=== PATIENT | male | born 1960 ===

== ENCOUNTER 2021-01-10 08:47 | Emergency (ER) | payer OTHER ==
[2021-01-10 08:53] VITALS: RESP 18
[2021-01-10] MEDS ORDERED: LIDOCAINE/EPINEPHR/TETRACAINE 5 ML BOTTLE TOPICAL ONE (09:00)
[2021-01-10] MEDS ORDERED: LIDOCAINE 1%/EPI 1:200,000 MPF 10 ML VIAL SQ STA (09:21)
[2021-01-10] MEDS ORDERED: LIDOCAINE 1%-EPI 1:100,000 20 ML VIAL SQ STA (09:27)
--- NOTE | 2021-01-10 10:04 | ED ---
ENT HPI - General Chief complaint: Dental/Oral Stated complaint: Oral bleeding Time Seen by Provider: 01/10/21 08:57 Source: patient, family, RN notes reviewed Mode of arrival: wheelchair Limitations: no limitations - History of Present Illness Initial comments: 60-year-old male presents emergency Department chief complaint of bleeding from his gums. Patient states he had all his teeth removed. Patient states that he sees and started bleeding it did stop and ruptured again. Patient has bleeding from lower gumline. Denies any blood thinners. Patient offers no other complaints. He states that his teeth were removed by [facility]. - Related Data Allergies Allergy/AdvReac Type Severity Reaction Status Date / Time No Known Allergies Allergy Verified 01/10/21 08:53 Review of Systems ROS Statement: Those systems with pertinent positive or pertinent negative responses have been documented in the HPI. ROS Other: All systems not noted in ROS Statement are negative. Past Medical History Past Medical History: No Reported History History of Any Multi-Drug Resistant Organisms: None Reported Past Surgical History: No Surgical Hx Reported Past Psychological History: No Psychological Hx Reported Smoking Status: Never smoker Past Alcohol Use History: None Reported Past Drug Use History: None Reported General Exam Limitations: no limitations General appearance: alert, in no apparent distress Head exam: Present: atraumatic, normocephalic, normal inspection Eye exam: Present: normal appearance, PERRL, EOMI. Absent: scleral icterus, conjunctival injection, periorbital swelling ENT exam: Present: mucous membranes moist. Absent: normal exam, normal oropharynx (No dentition there is active bleeding from lower anterior gum line) Neck exam: Present: normal inspection, full ROM. Absent: tenderness, meningismus, lymphadenopathy Respiratory exam: Present: normal lung sounds bilaterally. Absent: respiratory distress, wheezes, rales, rhonchi, stridor Cardiovascular Exam: Present: regular rate, normal rhythm, normal heart sounds. Absent: systolic murmur, diastolic murmur, rubs, gallop, clicks Course Vital Signs 01/10/21 08:48 Pulse Rate 73 Respiratory 18 Rate Blood Pressure 119/68 O2 Sat by Pulse 100 Oximetry Procedures - Procedures Initial comment: Let was initially applied to the lower area with pressure no relief of bleeding, 1% lidocaine with epinephrine to him also used to inject around the site of bleeding and lower gum bleeding has subsided. tolerated well no complications Medical Decision Making - Medical Decision Making Patient had some noted bleeding from his lower gumline from recent until extraction. Patient was observed after bleeding stopped for 20-25 minutes with no rebleeding patient feels comfortable with discharge. Disposition Clinical Impression: Gum hemorrhage Disposition: HOME SELF-CARE Condition: Stable Additional Instructions: Please return to the Emergency Department if symptoms worsen or any other concerns. Is patient prescribed a controlled substance at d/c from ED?: No Referrals: None,Stated [Primary Care Provider] - 1-2 days Time of Disposition: 10:04
[2021-01-10 10:12] VITALS: BP 118/84; PULSE 78
== END 2021-01-10 10:12 | disposition home or self-care (01) ==
LOC: EC 08:47
DX: K06.8 Other specified disorders of gingiva and edentulous alveolar ridge (principal)
CPT/HCPCS: 99283

== ENCOUNTER 2022-01-28 05:46 | Day surgery (SDC) | payer OTHER ==
[~2022-01-28 05:46] MED LIST: ACETAMINOPHEN TAB 500 MG TAB PO PRN; HEPARIN SODIUM,PORCINE/PF 5,000 UNIT/0.5 ML SYRINGE SQ PRN
[2022-01-28] MEDS ORDERED: SCOPOLAMINE 1 MG/72 HR PATCH TRANSDERM ONE (06:03)
[2022-01-28] MEDS ORDERED: LACTATED RINGERS 1,000 ML IV SCH (06:03)
[2022-01-28] MEDS ORDERED: MIDAZOLAM 2 MG/2 ML VIAL IV PRN (06:03)
[2022-01-28] MEDS ORDERED: ONDANSETRON 4 MG/2 ML VIAL IVP ONE (06:03)
[2022-01-28] MEDS ORDERED: DEXAMETHASONE SOD PHOSPHATE 4 MG/ML 1 ML VIAL IV ONE (06:03)
[2022-01-28 06:30] VITALS: TEMP 97.3
[2022-01-28 07:05] LABS: HCT 41.4 % (39.0-53.0); HGB 14.3 gm/dL (13.0-17.5); MCH 32.6 pg (25.0-35.0); MCHC 34.5 g/dL (31.0-37.0); MCV 94.4 fL (80.0-100.0); Mean Platelet Volume 10.5; RBC 4.39 m/uL (4.30-5.90); RDW 12.8 % (11.5-15.5); WBC 4.4 k/uL (3.8-10.6)
[2022-01-28 07:24] LABS: Platelet Count 91 k/uL (150-450)
[2022-01-28] MEDS ORDERED: NEOSTIGMINE 1 MG/ML 10 ML VIAL ONE (07:49)
[2022-01-28] MEDS ORDERED: MIDAZOLAM 2 MG/2 ML VIAL ONE (07:49)
[2022-01-28] MEDS ORDERED: GLYCOPYRROLATE 0.2 MG/ML 2 ML VIAL ONE (07:49)
[2022-01-28] MEDS ORDERED: ROCURONIUM 10 MG/ML (5 ML VIAL) IV ONE (07:49)
[2022-01-28] MEDS ORDERED: fentaNYL (PF) 50 MCG/ML 2 ML AMP ONE (07:49)
[2022-01-28] MEDS ORDERED: SUCCINYLCHOLINE CHLORIDE 100 MG/5 ML SYR IV ONE (07:49)
[2022-01-28] MEDS ORDERED: LIDOCAINE 2% INJ 20 MG/ML (2 ML VIAL) ONE (07:49)
[2022-01-28] MEDS ORDERED: KETAMINE 10 MG/ML 20 ML VIAL ONE (07:49)
[2022-01-28] MEDS ORDERED: PROPOFOL 10 MG/ML 20 ML VIAL IV ONE (07:49)
[2022-01-28] MEDS ORDERED: BUPIVACAINE (PF) 0.25% 30 ML VIAL SQ ONE (07:50)
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
[2022-01-28] MEDS ORDERED: TAMSULOSIN 0.4 MG CAP.ER.24H PO STA (09:34)
--- NOTE | 2022-01-28 09:40 | P.OP ---
Date of Procedure: 01/28/22 Procedure(s) Performed: PREOPERATIVE DIAGNOSIS: Right inguinal hernia POSTOPERATIVE DIAGNOSIS: Right indirect and direct inguinal hernia PROCEDURE: Laparoscopic da Sweetie assisted repair right inguinal hernia with mesh SURGEON: Dr. Colon ANESTHESIA: General OPERATIVE PROCEDURE DETAILS: Patient was placed in the operating table in the supine position. The patient was placed under general anesthesia. The abdomen was prepped and draped in usual sterile fashion. A small curvilinear supraumbilical incision was made. The fascia was retracted anteriorly with Birdie forceps. The Veress needle was inserted. The saline drop test was normal. Insufflation took place to 15 mmHg. An 8 mm trocar was placed into the peritoneal cavity. 2 additional 8 mm trochars were placed in the right upper quadrant and left upper quadrant under visualization. The robotic arms were then brought in and docked into place. The fenestrated bipolar was used in the left arm and the laparoscopic camilo was utilized in the right arm. A 30 8 mm scope was used in the up position. The peritoneal cavity was inspected. The patient had an obvious direct hernia on the right-hand side. Initially it did not appear that there was an indirect hernia on the right side. There was no visible hernia on the left. The peritoneum was incised in a horizontal fashion cephalad to the internal inguinal ring. Following that careful dissection of the preperitoneal space took place. This took place using both electrocautery, sharp dissection but primarily blunt dissection. Visualization of the pubic tubercle and Georges's ligament took place medially. Full dissection took place laterally as well. The direct hernia sac was fully dissected. The patient was noted to have a small very narrow patent processes vaginalis that actually as we followed it down into the scrotum widened out somewhat and was noted to be a sizable hernia. The opening at the internal inguinal ring however was quite small measuring only about 4 mm in diameter. I was eventually able to invert the hernia sac. Once we had adequate space the extra-large Bard 3-D mid mesh was advanced into the preperitoneal space and flattened out appropriately to cover all potential hernia sites. A 20 absorbable be locked suture was used to secure the mesh medially. This was a running stitch in a vertical fashion superior to the pubic tubercle. The peritoneal defect was then closed using a absorbable 2-0 VLok suture. The hernia sac was incorporated into the peritoneal closure to help prevent future recurrence. The redundant excess hernia sac was actually ligated because of its narrow section at the internal inguinal ring. The pneumoperitoneum was then evacuated. The skin of all 3 sites was closed using a 4-0 Monocryl stitch. Skin glue was then applied. TYPE OF MESH USED: Bard 3-D mid 5 x 7" LOCATION OF MESH: Preperitoneal FIXATION: Absorbable 20V lock suture PREOPERATIVE DISCUSSION ON SMOKING CESSASTION: Yes PREOPERATIVE DISCUSSION ON MORBID OBESITY: Yes PREOPERATIVE DISCUSSION ON APPROPRIATE USE OF NARCOTIC USE: Yes PREOPERATIVE EDUCATION: Multi Modal, Smoking Cessation and Weight Loss with BMI over 35. DISPOSITION: Stable to recovery room
[2022-01-28] MEDS ORDERED: KETOROLAC 15 MG/ML 1 ML VIAL IVP ONE (10:19)
[2022-01-28] MEDS: HYDROmorphone 0.5 MG/0.5 ML SYRINGE IVP PRN ×3 (10:23→10:40)
[2022-01-28 12:22] VITALS: RESP 16
[2022-01-28 12:28] VITALS: BP 118/72; PULSE 48
[2022-01-28] MEDS ORDERED: ACETAMINOPHEN TAB 325 MG TAB PO SCH (13:00)
[2022-01-28] MEDS ORDERED: IBUPROFEN 600 MG TAB PO SCH (16:00)
== END 2022-01-28 13:16 | disposition home or self-care (01) ==
LOC: OR 05:46
PROVIDERS: ATTEND Surgery
DX: K40.90 Unilateral inguinal hernia, without obstruction or gangrene, not specified as recurrent (principal); M79.5 Residual foreign body in soft tissue; Z98.890 Other specified postprocedural states; Z97.2 Presence of dental prosthetic device (complete) (partial)
CPT/HCPCS: 49650; S2900; 85027; 86850; 86900; 86901; 88302